=== PATIENT | female | born 2000 | race Caucasian/White ===

== ENCOUNTER 2022-08-09 12:25 | Observation (INO) | payer MEDICAID, OTHER | END 2022-08-09 14:33 | disposition home or self-care (01) | LOC: LDRP 12:25 | PROVIDERS: ADMIT Obstetrics & Gynecology; ATTEND Obstetrics & Gynecology | DX: O26.892 Other specified pregnancy related conditions, second trimester (principal); R10.11 Right upper quadrant pain; Z3A.20 20 weeks gestation of pregnancy | CPT/HCPCS: 59025; 76805; 81002; 94760; G0378 ==

== ENCOUNTER 2022-09-04 14:10 | Observation (INO) | payer MEDICAID ==
[2022-09-04] MEDS ORDERED: PREN-96 PO (15:42)
== END 2022-09-04 15:55 | disposition home or self-care (01) ==
LOC: LDRP 14:10 → UNDOADMOB 14:10 → LDRP 14:20
PROVIDERS: ADMIT Obstetrics & Gynecology; ATTEND Obstetrics & Gynecology
DX: O36.8120 Decreased fetal movements, second trimester, not applicable or unspecified (principal); O26.892 Other specified pregnancy related conditions, second trimester; R51.9 Headache, unspecified; Z3A.24 24 weeks gestation of pregnancy
CPT/HCPCS: 59025; 76815; 81002; 94760; G0378